=== PATIENT | male | born 1965 | race Hispanic/Latino ===

== ENCOUNTER 2017-01-07 17:11 | Emergency (ER) | payer OTHER, SELFPAY ==
[2017-01-07 17:50] LABS: #Lymphocytes 1.3 thou/uL (1.20-3.40); #Monocytes 0.8 thou/uL (0.11-0.59); #Neutrophils 3.7 thou/uL (1.40-6.50); %Basophils 0.6 % (0.0-1.0); %Eosinophils 0.6 % (0.0-10.0); %Lymphocytes 22.1 % (21.0-51.0); %Monocytes 13.7 % (0.0-10.0); Hematocrit 45.6 % (42.0-52.0); Mean Platelet Volume 9.4 fL (7.4-10.4); Red Blood Cell (RBC) Count 4.75 mill/uL (4.70-6.10); White Blood Cell (WBC) Count 5.9 thou/uL (4.8-10.8)
[2017-01-07 18:06] LABS: Lactic Acid - Sepsis 1.8 mmol/L (0.5-2.2)
[2017-01-07 18:09] LABS: ALT (SGPT) 34 U/L (8-55); AST (SGOT) 65 U/L (5-34); Alkaline Phosphatase 81 U/L (40-150); Anion Gap 14 mmol/L (10-20); BUN (Urea Nitrogen) 8 mg/dL (8.4-25.7); Bilirubin, Total 0.9 mg/dL (0.2-1.2); Calc. Creatinine Clearance 0 mL/min (70-130); Calcium 9.8 mg/dL (7.8-10.44); Carbon Dioxide 31 mmol/L (22-29); Chloride 95 mmol/L (98-107); Estimated GFR-MDRD Greater than 90; Globulin 5.1 g/dL (2.4-3.5); Protein, Total 9.2 g/dL (6.0-8.3)
[2017-01-07] MEDS ORDERED: Ketorolac Tromethamine 30 MG/ML VIAL ONE (18:21)
[2017-01-07] MEDS ORDERED: Ondansetron HCl/PF 4 MG/2 ML Vial ONE (18:21)
[2017-01-07] MEDS ORDERED: cloNIDine 0.1 MG TAB ONE (18:27)
--- NOTE | 2017-01-07 20:37 | RAD ---
CHEST TWO VIEW 01/07/17 HISTORY: Fever, cough and chills. COMPARISON: Chest two view 01/08/16. FINDINGS: The lungs are clear. No pneumothorax or effusion. The cardiac silhouette and mediastinal contours ar e similar. IMPRESSION: No acute intrathoracic abnormality. No significant change. POS: [facility]
== END 2017-01-08 00:40 | disposition home or self-care (01) ==
LOC: ERS 17:11
DX: J11.1 Influenza due to unidentified influenza virus with other respiratory manifestations (principal); I10 Essential (primary) hypertension; Z86.73 Personal history of transient ischemic attack (TIA), and cerebral infarction without residual deficits; G89.29 Other chronic pain; K74.60 Unspecified cirrhosis of liver; F41.9 Anxiety disorder, unspecified; F32.9 Major depressive disorder, single episode, unspecified; F17.210 Nicotine dependence, cigarettes, uncomplicated; Z79.899 Other long term (current) drug therapy
CPT/HCPCS: 36415; 71020; 80053; 82140; 83605; 85025; 93005; 96361; 96374; 96375; 99406; J1885; J2405

== ENCOUNTER 2017-08-17 00:28 | Inpatient (IN) | payer SELFPAY ==
[2017-08-17] MEDS ORDERED: Ondansetron ODT 8 MG TAB ONE (00:49)
[2017-08-17] MEDS ORDERED: Lorazepam 2 MG/ML VIAL ONE (00:53)
[2017-08-17 00:59] LABS: Hemoglobin 11.8 g/dL (14.0-18.0); Mean Corpuscular Hemoglobin 32.4 pg (27.0-31.0); Mean Corpuscular Volume 95.4 fL (78.0-98.0); RBC Distribution Width 13.1 % (11.5-14.5); Red Blood Cell (RBC) Count 3.65 mill/uL (4.70-6.10); White Blood Cell (WBC) Count 6.7 thou/uL (4.8-10.8)
[2017-08-17] MEDS ORDERED: Octreotide Acetate 50 MCG/ML AMP ONE (01:09)
[2017-08-17] MEDS ORDERED: Pantoprazole 40 MG VIAL ONE (01:09)
[2017-08-17 01:13] LABS: INR-International Normal Ratio 1.1; PTT 31.3 SEC (22.9-36.1); Prothrombin Time 13.9 SEC (12.0-14.7)
[2017-08-17 01:14] LABS: ALT (SGPT) 62 U/L (8-55); AST (SGOT) 166 U/L (5-34); Albumin 3.6 g/dL (3.5-5.0); Alkaline Phosphatase 133 U/L (40-150); Anion Gap 17 mmol/L (10-20); BUN (Urea Nitrogen) 14 mg/dL (8.4-25.7); Bilirubin, Total 1.2 mg/dL (0.2-1.2); Calc. Creatinine Clearance 0 mL/min (70-130); Calcium 9.2 mg/dL (7.8-10.44); Carbon Dioxide 29 mmol/L (22-29); Chloride 92 mmol/L (98-107); Estimated GFR-MDRD Greater than 90; Globulin 4.3 g/dL (2.4-3.5); Glucose 149 mg/dL (70-105); Lipase 87 U/L (8-78); Magnesium 1.7 mg/dL (1.6-2.6); Potassium 3.1 mmol/L (3.5-5.1); Protein, Total 7.9 g/dL (6.0-8.3); Sodium 135 mmol/L (136-145)
[2017-08-17] MEDS ORDERED: Octreotide Acetate 100 MCG/ML VIAL SLOW IVP SCH (01:15)
[2017-08-17] MEDS ORDERED: Octreotide Acetate 1,250 MCG in Sodium Chloride 0.9% 250 ML 250 ML IVPB SCH (01:15)
[2017-08-17 01:16] LABS: #Basophils 0.1 thou/uL (0.0-0.2); #Eosinphils 0.1 thou/uL (0.0-0.7); #Lymphocytes 1.6 thou/uL (1.20-3.40); #Monocytes 0.7 thou/uL (0.11-0.59); #Neutrophils 4.1 thou/uL (1.40-6.50); %Basophils 1.4 % (0.0-1.0); %Eosinophils 1.8 % (0.0-10.0); %Lymphocytes 24.3 % (21.0-51.0); %Monocytes 10.6 % (0.0-10.0); %Neutrophils 61.9 % (42.0-75.0); MDiff Complete? YES; Mean Platelet Volume 9.6 fL (7.4-10.4); PLT Morphology Comment Appears Decreased; Platelet Count 99 thou/uL (130-400); Target Cells SLIGHT = 2-5 cells (100X) (0-1/hpf)
[2017-08-17 01:18] LABS: CKMB 0.6 ng/mL (0-6.6); Troponin I Less than 0.010 ng/mL (< 0.028)
[2017-08-17] MEDS ORDERED: Sodium Chloride 0.9% 100 ML ONE (01:28)
[2017-08-17] MEDS ORDERED: cefTRIAXone\\ROCEPHIN 1 GM VIAL ONE (01:28)
[2017-08-17] MEDS ORDERED: Ondansetron HCl/PF 4 MG/2 ML Vial IVP PRN ×2 (03:26→09:41)
[2017-08-17] MEDS ORDERED: Ondansetron ODT 4 MG TAB SL PRN (03:26)
[2017-08-17] MEDS ORDERED: Acetaminophen 325 MG TAB PO PRN (03:26)
[2017-08-17] MEDS ORDERED: Pantoprazole 80 MG, Admixture Fee 1 EACH in Sodium Chloride 0.9% 100 ML IVP SCH (03:30)
[2017-08-17 03:33] VITALS: BMI 28.5
[2017-08-17] MEDS ORDERED: Diazepam 5 MG TAB PO PRN (03:57)
[2017-08-17] MEDS ORDERED: Thiamine HCl 200 MG/2 ML VIAL IM SCH (04:00)
[2017-08-17] MEDS: traMADol HCl 50 MG TAB PO PRN ×2 (04:17→15:02)
[2017-08-17 04:34] LABS: Anion Gap 13 mmol/L (10-20); BUN (Urea Nitrogen) 13 mg/dL (8.4-25.7); Calc. Creatinine Clearance 159 mL/min (70-130); Calcium 8.2 mg/dL (7.8-10.44); Carbon Dioxide 31 mmol/L (22-29); Chloride 96 mmol/L (98-107); Estimated GFR-MDRD Greater than 90; Glucose 142 mg/dL (70-105); Potassium 3.2 mmol/L (3.5-5.1); Sodium 137 mmol/L (136-145)
[2017-08-17] MEDS: Sodium Chloride 0.45% 1,000 ML IV SCH ×2 (05:47→12:12)
--- NOTE | 2017-08-17 06:25 | HP ---
TIME OF EVALUATION: 02:50 a.m. CODE STATUS: FULL CODE. PRIMARY CARE PHYSICIAN: The patient has no PCP. CHIEF COMPLAINT: Vomiting up blood. HISTORY OF PRESENT ILLNESS: This is a 52-year-old male patient with a past medical history of chronic alcohol abuse, liver cirrhosis, presented to the hospital, complaining of nausea, vomiting, hematemesis started about 4:00 p.m. The patient also reported having to generalized weakness, tremors; for that reason, he had to drink 3 beers today to decrease the tremors,but it has gotten worse again, pt reported associated anxiety, palpitations. Symptoms started suddenly, associated with abdominal pain, 09/19. REVIEW OF SYSTEMS: Constitutional: No fever, no chills. Generalized weakness. Respiratory: No cough, no sputum production, or shortness of breath. Cardiovascular: No chest pain, palpitations, shortness of breath. Gastrointestinal: The patient has nausea, hematemesis, abdominal pain. Central Nervous System: No dizziness, headache, or feeling lightheaded. Genitourinary: No burning on urination. Extremities: No leg swelling. psych: temors, anxiety. All other systems were reviewed and were negative except for the findings mentioned above. PAST MEDICAL HISTORY: Cirrhosis of the liver, history of previous gastrointestinal bleeding, history of previous stroke, history of pancreatitis, polysubstance abuse. PAST SURGICAL HISTORY: EGD in 2008. PSYCHIATRIC HISTORY: Anxiety. FAMILY HISTORY: Mother, diabetes, and hypertension. SOCIAL HISTORY: Patient drinks more than 10 drinks per day. Former drug user of cocaine, heroin, marijuana, opioids, still everyday smoker, smokes 2 packs per day. DRUG ALLERGIES: No known drug allergies reported. MEDICATIONS: No reported medications. PHYSICAL EXAMINATION: VITAL SIGNS: Blood pressure on presentation was 92/69 with heart rate 92, respiratory rate was 18, temperature 98.1, oxygen saturation 94, blood pressure improved after fluid resuscitation with the systolic 128/87, heart rate 80. GENERAL: The patient is alert, lethargic, not in acute distress. HEENT: Eye, normal conjunctivae. Moist oral mucosa. Anicteric. NECK: No JVD. RESPIRATORY: Bilateral air entry. No rales, no wheezing. Symmetric expansion. CARDIOVASCULAR: Normal rate, regular rhythm, no murmur, no gallop, no edema. ABDOMEN: Soft, mild tenderness, bowel sounds are present. MUSCULOSKELETAL: Baseline range of motion and strength. No tenderness. SKIN: Warm and intact. No pallor, no rash, no redness. NEUROLOGIC: Baseline sensorium. No evidence of any new focal weakness. Baseline speech. Cranial nerves seemed to be intact. PSYCHIATRIC: The patient is anxious, having tremors, no hallucinations at this point. LABORATORY AND DIAGNOSTIC DATA: Reviewed. The patient has white count of 6.7, hemoglobin 11.8, platelet count 99. Chemistry: Sodium 137, potassium 3.2, chloride 96, carbon dioxide 31, anion gap 13, creatinine 0.6, GFR greater than 90, glucose 142, calcium 9.2, AST 166, ALT 62. Troponin was negative. Plasma alcohol 76. EKG was discussed with the ER physician and performing physician, heart rate 89. ST segments and T waves are normal, prolonged QT, no evidence of any acute ischemic event. ASSESSMENT AND PLAN: The patient was placed in the hospital for a medical condition. 1. Upper gastrointestinal bleeding, patient has a history of GI bleed in the past, history of cirrhosis, we will consult gastroenterology, we will place in IMCU since patient was hypotensive on presentation, has recovered with IV fluids , type and screen has been ordered, PRBCs has been placed on hold in case the patient is actively bleeding and develop need for transfusion. We will monitor H and H, we will give hydration to keep hemodynamics, octreotide, Protonix drip. 2. Impending delirium tremens, patient has tremors, anxiety, occasionally lethargic. No hallucination at this point. We will place the patient one ase protocol. We will adjust the treatment depending on patient's response to treatment. 3. Acute hypokalemia, potassium 3.2, will replace electrolytes as needed. 3. Hyperglycemia 142, likely due to acute physical distress, this is mild, will monitor for any acute intervention. Elevated LFTs with AST 166 and ALT 62, monitor, likely secondary to alcoholic hepatitis. 4. Alcohol intoxication. Plasma alcohol level 76. We will watch for DT's Advised to stop using alcohol. The patient has stated that he has tried help with many different organizations and has failed before. I have encouraged the patient to keep trying until he completely stopped drinking. 5. Deep venous thrombosis prophylaxis. MTDD
[2017-08-17 07:09] LABS: Hemoglobin 10.5 g/dL (14.0-18.0)
[2017-08-17] MEDS ORDERED: Promethazine HCl 25 MG/ML VIAL SLOW IVP PRN (09:41)
[2017-08-17] MEDS ORDERED: Promethazine HCl 25 MG/ML VIAL IM PRN (09:41)
[2017-08-17] MEDS ORDERED: Pantoprazole 40 MG VIAL IVP SCH (09:45)
--- NOTE | 2017-08-17 11:00 | CON ---
DATE OF CONSULTATION: 08/17/2017 CHIEF COMPLAINT: Vomited blood. HISTORY OF PRESENT ILLNESS: Mr. Caldwell is a 52-year-old man, who yesterday afternoon had sudden on set of red and black hematemesis. He then had several more episodes of red hematemesis with clots. He states he has been vomiting frequently over the last couple of weeks, it would just nonbloody emes is. He has had some aching upper periumbilical to epigastric abdominal pain. This has been somewhat persistent over the last couple of weeks. He takes ibuprofen for back pain, maybe once per week, a couple at a time. He reports he had a lower GI bleed a couple of months ago, for which he underwent colonoscopy. He states that was at this hospital; however, did not find any record of that at least under this medical record number. He has a history of cirrhosis diagnosed 3 years ago. He has had n o prior vomiting of blood. PAST MEDICAL HISTORY: Alcoholic cirrhosis and polysubstance abuse, history of hypertension and chron ic back pain, history of pancreatitis and stroke. PAST SURGICAL HISTORY: Colonoscopy a couple months ago per his report. FAMILY HISTORY: Negative for GI malignancy or liver disease. SOCIAL HISTORY: Drinks 10 beers a day or more. He smokes 2 packs per day. He has multiple other dr ugs in the past including cocaine and heroin, marijuana and methamphetamines. ALLERGIES: No known drug allergies. MEDICATIONS AT HOME: He states he takes three different blood pressure medications, but does not rec all the name now. There is a medicine list that shows amitriptyline, hydrochlorothiazide, loratadine , metoprolol, ranitidine, clonidine, and trazodone. REVIEW OF SYSTEMS: Negative x10 systems reviewed except as stated in history of present illness. PHYSICAL EXAMINATION: VITAL SIGNS: Temperature 98.9, pulse 85, and blood pressure 118/78. GENERAL: He is in no acute distress, alert and oriented x3. HEENT: Eyes have no scleral icterus. Oropharynx is clear, without lesions. NECK: No cervical or supraclavicular lymphadenopathy. LUNGS: Clear to auscultation bilaterally. HEART: Regular rate and rhythm without murmur. ABDOMEN: He does have tenderness in the periumbilical abdominal area. There is voluntary slight gua rding. EXTREMITIES: No lower extremity edema. NEUROLOGIC: Reveals no asterixis. LABORATORY DATA: White blood cell count 6.7, hemoglobin 10.5, platelets 99. INR 1.1, creatinine 0.6 2, AST 166, ALT 62, bilirubin 1.2, alkaline phosphatase 133. IMPRESSION: 1. Hematemesis. This could be due to esophageal varices or peptic ulcer or Wilma-Wilkerson tear. 2. Alcoholic hepatitis with mild elevation of the AST 2 times greater than ALT. 3. Anemia of acute blood loss. 4. Alcoholic cirrhosis. 5. Alcohol, tobacco, and polysubstance abuse. RECOMMENDATIONS: 1. Octreotide drip. 2. Proton pump inhibitor drip. 3. EGD today. 4. DT precautions and vitamins and thiamine, and folate. 5. Alcohol cessation is advised. 6. Check alpha fetoprotein and ultrasound of the liver for hepatoma screening. 7. Check hepatitis A total antibody and hepatitis B surface antibody. He should be vaccinated if he is not immune. Hepatitis C antibody was previously negative and hepatitis B acute panel was negativ e; however, these labs are from 2012. I will recheck these as well.
--- NOTE | 2017-08-17 11:36 | OP ---
DATE OF PROCEDURE: 08/17/2017 PROCEDURE: Esophagogastroduodenoscopy with control of hemorrhage. PREOPERATIVE DIAGNOSIS: Upper gastrointestinal bleed. OPERATIVE NOTE: Informed consent was obtained from the patient, but he was sedated with total intrav enous anesthesia. The bite block was placed and the endoscope was advanced easily to the second port ion of the duodenum and retroflexion was performed in the stomach. The esophagus had shallow mild er osions in the distal esophagus. There was a 1 cm tear just below the Z-line in the GE junction. In the distal portion of this tear was a visible vessel, which was cauterized with a 10-[place] gold prob e. There was moderate portal hypertensive gastropathy in the fundus of the stomach. No esophageal o r gastric varices were seen. There was a 3 mm AVM in the antrum of the stomach, which was cauterized with a 10-[place]riot gold probe as well; however, this does not appear to have been the bleeding source. The pylorus and first and second portions of the duodenum were normal. IMPRESSION: 1. Wilma-Wilkerson tear with visible vessel, which was cauterized with a 10-[place] gold probe. This w as the bleeding source. 2. Grade B erosive esophagitis. 3. Tiny vascular ectasia in the antrum was also cauterized with the 10-[place] gold probe; however, t his was not the primary bleeding source. 4. Moderate portal hypertensive gastropathy in the fundus of the stomach. 5. No esophageal or gastric varices were visualized. RECOMMENDATIONS: 1. Discontinue octreotide. 2. Proton pump inhibitor twice daily orally. 3. Check alpha fetoprotein and ultrasound of the liver for hepatoma screening. 4. Alcohol and smoking cessation.
[2017-08-17] MEDS: Multivitamin W/ Minerals 1 TAB PO SCH (12:10)
[2017-08-17] MEDS: Folic Acid 1 MG TAB PO SCH (12:11)
[2017-08-17] MEDS: traZODone HCl 50 MG TAB PO SCH ×2 (12:11→20:53)
--- NOTE | 2017-08-17 14:28 | PDOC.PN ---
- Subjective Encounter Start Date: 08/17/17 Encounter Start Time: 13:30 Subjective: pt up in bed has some abdomen pain - Objective Resuscitation Status: Resuscitation Status FULL:Full Resuscitation Vital Signs & Weight: Vital Signs (12 hours) Temp Pulse Resp BP BP Pulse Ox 08/17/17 12:47 98.7 F 78 18 134/95 H 92 L 08/17/17 12:20 88 16 134/95 H 94 L 08/17/17 12:00 134/95 H 08/17/17 08:00 98.9 F 85 19 118/78 98 08/17/17 07:31 98.9 F 85 19 118/78 99 08/17/17 03:16 98.6 F 85 18 126/86 126/86 99 Weight Weight 182 lb 6.4 oz I&O: 08/16/17 08/17/17 08/18/17 06:59 06:59 06:59 Intake Total 206 Output Total 250 Balance -44 Result Diagrams: 08/17/17 03:46 08/17/17 03:46 Phys Exam - Physical Examination HEENT: PERRLA, moist MMs, sclera anicteric, TM's clear, oral pharynx no lesions , 2+ tonsils Neck: no nodes, no JVD, supple, full ROM Respiratory: no wheezing, no rales, no rhonchi, wheezing present, clear to auscultation bilateral Cardiovascular: RRR, no significant murmur, no rub, gallop, irregular Gastrointestinal: soft, positive bowel sounds mild tenderenss to epigastric area Musculoskeletal: no edema, pulses present, edema present Dx/Plan (1) Upper GI bleed Code(s): K92.2 - GASTROINTESTINAL HEMORRHAGE, UNSPECIFIED Status: Acute (2) Alcohol withdrawal Code(s): F10.239 - ALCOHOL DEPENDENCE WITH WITHDRAWAL, UNSPECIFIED Status: Acute (3) HTN (hypertension) Code(s): I10 - ESSENTIAL (PRIMARY) HYPERTENSION Status: Chronic Qualifiers: (4) Thrombocytopenia Code(s): D69.6 - THROMBOCYTOPENIA, UNSPECIFIED Status: Chronic (5) Hypokalemia Code(s): E87.6 - HYPOKALEMIA Status: Acute - Plan pt had his egd no varices but has shona bright tear/ectasia/esophagitis -: recommend against drinking. on wa protocol -: will replace K -: continue ppi * . Review of Systems - Review of Systems ENT: negative: Ear Pain, Ear Discharge, Nose Pain, Nose Discharge, Nose Congestion, Mouth Pain, Mouth Swelling, Throat Pain, Throat Swelling, Other Respiratory: negative: Cough, Dry, Shortness of Breath, Hemoptysis, SOB with Excertion, Pleuritic Pain, Sputum, Wheezing Cardiovascular: negative: chest pain, palpitations, orthopnea, paroxysmal nocturnal dyspnea, edema, light headedness, other Gastrointestinal: Abdominal Pain - Medications/Allergies Allergies/Adverse Reactions: Allergies Allergy/AdvReac Type Severity Reaction Status Date / Time No Known Allergies Allergy Verified 08/17/17 05:33 Medications: Current Medications Acetaminophen (Tylenol) 650 mg PO Q4H PRN PRN Reason: Headache/Fever or Pain Stop: 08/17/17 15:00 Amitriptyline HCl (Elavil) 150 mg PO [facility] Diazepam (Valium) 10 mg PO Q4H PRN PRN Reason: FOR ASE 10 OR GREATER Stop: 08/18/17 04:00 Last Admin: 08/17/17 04:17 Dose: 10 mg Diazepam (Valium) 5 mg PO Q4H PRN PRN Reason: FOR ASE 10 OR GREATER Folic Acid (Folvite) 1 mg PO DAILY [facility] Last Admin: 08/17/17 12:11 Dose: 1 mg Sodium Chloride (1/2 Normal Saline) 1,000 mls @ 125 mls/hr IV .Q8H [facility] Stop: 08/17/17 15:00 Last Admin: 08/17/17 12:12 Dose: Not Given Pantoprazole Sodium 80 mg/Miscellaneous Medication 1 each/ Sodium Chloride 100 mls @ 10 mls/hr IVP INF [facility] Stop: 08/17/17 14:30 Last Admin: 08/17/17 04:18 Dose: 100 mls Iron/Minerals/Multivitamins (Theragran M) 1 tab PO DAILY [facility] Last Admin: 08/17/17 12:10 Dose: 1 tab Magnesium Oxide (Magnesium Oxide) 400 mg PO DAILY [facility] Ondansetron HCl (Zofran) 4 mg IVP Q6H PRN PRN Reason: Nausea/Vomiting Stop: 08/17/17 15:00 Last Admin: 08/17/17 04:18 Dose: 4 mg Ondansetron HCl (Zofran Odt) 4 mg SL Q6H PRN PRN Reason: Nausea/Vomiting Stop: 08/17/17 15:00 Pantoprazole Sodium (Protonix) 40 mg PO BID [facility] Sodium Chloride (Flush - Normal Saline) 10 ml IVF PRN PRN PRN Reason: Saline Flush Stop: 08/17/17 15:00 Thiamine HCl (Thiamine) 100 mg PO DAILY [facility] Tramadol HCl (Ultram) 50 mg PO TIDPRN PRN PRN Reason: Moderate Pain (4-6) Last Admin: 08/17/17 04:17 Dose: 50 mg Trazodone HCl (Desyrel) 50 mg PO BID [facility] Last Admin: 08/17/17 12:11 Dose: 50 mg
[2017-08-17] MEDS ORDERED: PROPOFOL 200 MG/20 ML VIAL ONE (14:56)
[2017-08-17] MEDS: Ondansetron HCl/PF 4 MG/2 ML Vial SLOW IVP PRN (20:54)
[2017-08-18] MEDS ORDERED: Diazepam 5 MG TAB PO PRN (04:00)
[2017-08-18 04:11] LABS: #Basophils 0.1 thou/uL (0.0-0.2); #Eosinphils 0.2 thou/uL (0.0-0.7); #Lymphocytes 1.7 thou/uL (1.20-3.40); #Monocytes 0.7 thou/uL (0.11-0.59); #Neutrophils 3.9 thou/uL (1.40-6.50); %Basophils 0.8 % (0.0-1.0); %Eosinophils 3.4 % (0.0-10.0); %Lymphocytes 25.8 % (21.0-51.0); Hemoglobin 9.5 g/dL (14.0-18.0); Mean Corpuscular HGB CONC 34.5 g/dL (32.0-36.0); Mean Corpuscular Hemoglobin 32.9 pg (27.0-31.0); Mean Corpuscular Volume 95.4 fL (78.0-98.0); Platelet Count 90 thou/uL (130-400); RBC Distribution Width 12.8 % (11.5-14.5); Red Blood Cell (RBC) Count 2.88 mill/uL (4.70-6.10); White Blood Cell (WBC) Count 6.6 thou/uL (4.8-10.8)
[2017-08-18 04:16] LABS: ALT (SGPT) 36 U/L (8-55); AST (SGOT) 79 U/L (5-34); Albumin 3.1 g/dL (3.5-5.0); Alkaline Phosphatase 100 U/L (40-150); Anion Gap 10 mmol/L (10-20); BUN (Urea Nitrogen) 9 mg/dL (8.4-25.7); Bilirubin, Total 1.4 mg/dL (0.2-1.2); Calc. Creatinine Clearance 165 mL/min (70-130); Calcium 8.1 mg/dL (7.8-10.44); Carbon Dioxide 32 mmol/L (22-29); Chloride 95 mmol/L (98-107); Estimated GFR-MDRD Greater than 90; Globulin 3.4 g/dL (2.4-3.5); Glucose 124 mg/dL (70-105); Protein, Total 6.5 g/dL (6.0-8.3); Sodium 134 mmol/L (136-145)
[2017-08-18 04:38] LABS: HBCM Index 0.06 S/CO (0-0.79); HBSAg Index 0.15 S/CO (0-0.99); Hep A IgM AB Non-Reactive (NonReactive); Hep B Surf Ag Non-Reactive S/CO (NonReactive); Hep C IgG Ab Non-Reactive (NonReactive); Hep C Index 0.12 S/CO (0-0.79); Hepatitis B Core IGM Abs Non-Reactive (NonReactive)
[2017-08-18 04:47] LABS: Potassium 2.9 mmol/L (3.5-5.1)
[2017-08-18] MEDS ORDERED: Potassium Chloride 20 MEQ TAB PO SCH ×2 (05:00→09:30)
[2017-08-18 05:49] LABS: HBSAB Concentration 10.28 mIU/mL; Hep B Surf AB Indeterminate (NonReactive)
[2017-08-18] MEDS: Folic Acid 1 MG TAB PO SCH (09:29)
[2017-08-18] MEDS: Multivitamin W/ Minerals 1 TAB PO SCH (09:29)
[2017-08-18] MEDS: traZODone HCl 50 MG TAB PO SCH ×2 (09:29→20:14)
[2017-08-18] MEDS: Magnesium Oxide 400 MG TAB PO SCH (09:29)
--- NOTE | 2017-08-18 11:10 | ULT ---
GALLBLADDER ULTRASOUND: CLINICAL HISTORY: Cirrhosis. Evaluate for hepatoma. FINDINGS: There is increased echogenicity of the hepatic parenchyma. No discrete hepatic mass is visualized. There is no acute gallbladder pathology. Johnson sign is reported as negative. There is prominence o f the common duct, at 9 mm. No ascites of significance. IMPRESSION: 1. Prominent sized, echogenic liver, which may be on the basis of hepatic steatosis. There is no di screte hepatic lesion identified. 2. Prominent biliary ducts. Recommend correlation with biliary laboratory values to exclude an obst ructive process. 3. If there remains clinical concern for hepatoma, consider followup with dedicated CT or MRI abdome n, utilizing hepatic mass protocol. POS: [facility]
--- NOTE | 2017-08-18 15:16 | PRG ---
DATE OF SERVICE: 08/18/2017 SUBJECTIVE: Mr. Caldwell had one black stool this morning. He tolerated his diet well; however, thi s afternoon, he did have some pain in his epigastric region. This had no further nausea or vomiting. OBJECTIVE: VITAL SIGNS: Temperature 98.2, pulse 81, blood pressure 119/89. GENERAL: He is in no acute distress, awake and alert. LUNGS: Clear to auscultation bilaterally. HEART: Regular rate and rhythm. ABDOMEN: Soft. He has tenderness in the epigastric region without guarding. Bowel sounds are prese nt. LABORATORY DATA: Hemoglobin is 9.5, creatinine 0.6, bilirubin 1.4, AST 79, ALT 36, alkaline phosphat ase 100, albumin 3.1. IMPRESSION: 1. Upper gastrointestinal bleed from a Wilma-Wilkerson tear, status post electrocautery. He passed so me old blood out today, but appears to have good control of bleeding source endoscopically. 2. Alcoholic hepatitis. 3. Alcoholic cirrhosis. 4. Anemia of acute blood loss. 5. Alcohol abuse. RECOMMENDATIONS: 1. Continue oral diet and proton pump inhibitor. 2. The ultrasound of liver was negative for evidence of hepatoma. Alpha fetoprotein is pending. 3. If his hemoglobin remains stable and his symptoms improve, then I would anticipate he should be a ble to discharge home tomorrow.
[2017-08-18] MEDS: traMADol HCl 50 MG TAB PO PRN ×2 (17:52→22:29)
[2017-08-18] MEDS: Ondansetron HCl/PF 4 MG/2 ML Vial SLOW IVP PRN (17:53)
[2017-08-19 05:32] LABS: #Basophils 0.1 thou/uL (0.0-0.2); #Eosinphils 0.2 thou/uL (0.0-0.7); #Lymphocytes 1.8 thou/uL (1.20-3.40); #Monocytes 0.7 thou/uL (0.11-0.59); #Neutrophils 3.3 thou/uL (1.40-6.50); %Basophils 1.1 % (0.0-1.0); %Eosinophils 3.8 % (0.0-10.0); %Lymphocytes 30.1 % (21.0-51.0); %Monocytes 10.7 % (0.0-10.0); %Neutrophils 54.2 % (42.0-75.0); Hemoglobin 9.3 g/dL (14.0-18.0); Mean Corpuscular HGB CONC 34.1 g/dL (32.0-36.0); Mean Corpuscular Hemoglobin 33.1 pg (27.0-31.0); Mean Corpuscular Volume 97.1 fL (78.0-98.0); Mean Platelet Volume 10.2 fL (7.4-10.4); Platelet Count 91 thou/uL (130-400); RBC Distribution Width 12.9 % (11.5-14.5); Red Blood Cell (RBC) Count 2.81 mill/uL (4.70-6.10)
[2017-08-19 05:42] LABS: Anion Gap 10 mmol/L (10-20); BUN (Urea Nitrogen) 6 mg/dL (8.4-25.7); Calc. Creatinine Clearance 162 mL/min (70-130); Calcium 8.5 mg/dL (7.8-10.44); Carbon Dioxide 29 mmol/L (22-29); Chloride 98 mmol/L (98-107); Estimated GFR-MDRD Greater than 90; Glucose 92 mg/dL (70-105); Potassium 3.6 mmol/L (3.5-5.1); Sodium 133 mmol/L (136-145)
--- NOTE | 2017-08-19 07:42 | PDOC.EVN ---
Event Note - Event Note Event Note: late entry for 08/18/2017 pt seen & examined h&p reviewed no new c/o, seen post EGD, no continued nausea abd pain no diarrhea friend visiting @ bedside exam gen: AAA, NAD, seated in hospital bed resp: ctab, no w/r/r, reasonable air movement, no conversational dyspnea cv: s1, s2, no m/r/g/, pulses 2+ b/l UE, no pitting pedal edema abd: + Bs, soft, non ttp ext: maee labs: seen & Examined CBC grossly stable VSS A/P shona bright type tear on EGD apprec GI c/s serial H.H Etoh USE with concern for hepatotoxicity from EtOH use counseled re: cessation of alcohol use - pt is contemplative diet: as per GI, adv as akil dvt ppx activity as akil
[2017-08-19] MEDS: traZODone HCl 50 MG TAB PO SCH (09:43)
[2017-08-19] MEDS: Folic Acid 1 MG TAB PO SCH (09:43)
[2017-08-19] MEDS: Multivitamin W/ Minerals 1 TAB PO SCH (09:43)
[2017-08-19] MEDS: Magnesium Oxide 400 MG TAB PO SCH (09:43)
[2017-08-19 15:31] VITALS: BP 121/86; TEMP 98.2
--- NOTE | 2017-08-19 15:32 | PDOC.EVN ---
Event Note - Event Note Event Note: SPOKE WITH PT'S SON ABOUT HIS LOW BP AND RECOMMENDED TO HOLD HIS BP MEDS UNTIL FRIDAY. ALSO ASKED TO CHECK BP PRIOR TO GIVING HIS BLOOD PRESSURE MEDS
--- NOTE | 2017-08-20 01:56 | DIS ---
DATE OF ADMISSION: 08/17/2017 DATE OF DISCHARGE: 08/19/2017 DISCHARGE DIAGNOSES: 1. Upper gastrointestinal bleed, most likely from Wilma-Wilkerson tear. 2. Alcoholic cirrhosis. 3. Alcoholic hepatitis. 4. Acute blood loss anemia. 5. Alcohol abuse. HOSPITAL COURSE: Patient is a 52-year-old male who has a history of alcohol use who initially presen jacinda to the hospital with nausea, vomiting, and hematemesis. Patient initially was put on octreotide and a PPI drip. The patient was seen by GI, underwent an endoscopy on 07/18/2017 which indicated a M allory-Wilkerson tear with a visible vessel, which was cauterized by 10-[place] gold probe. He also had g rade B erosive esophagitis. He also had a tiny vascular ectasia in the antrum that was also cauteriz ed. He did have some moderate portal hypertensive gastropathy in the fundus of the stomach. No esop hageal or gastric varices were visualized. The patient was monitored over 24 hours, his H&H continue d to remain stable. He was able to tolerate a full diet. He was put on PPI twice a day. Also, he h ad an abdominal ultrasound which indicated there was a prominent size echogenic liver, most likely on the basis of hepatic steatosis, no hepatic lesions were noted. Prominent biliary ducts. The patien t tolerated his diet well. He wants to go home. We will discharge the patient. Follow up with GI i n about a month. The patient was asked to refrain from alcohol use. He was put on PPI twice a day. Great stress was put on stopping the alcohol use. Patient was recommended that if his abdominal zulema n, nausea, vomiting started, he needs to come back to the ER for further evaluation. PHYSICAL EXAMINATION: VITAL SIGNS: 98.6, 78, 104/82, 70, 98% room air. GENERAL: He is awake, alert, and oriented x3, does not appear in distress. CARDIOVASCULAR: S1, S2 present. No murmurs, rubs or gallops. ABDOMEN: Soft, nontender. Bowel sounds are present x2. EXTREMITIES: No edema. DISCHARGE MEDICATIONS: He will take Protonix 40 mg b.i.d., magnesium oxide 40 mg daily, multivitamin 1 daily, folic acid 1 daily, thiamine 100 mg daily, Lopressor 50 mg b.i.d., clonidine 0.2 mg p.o. b. i.d., trazodone 50 mg at bedtime, amitriptyline 50 mg at bedtime, hydrochlorothiazide 25 mg daily, an d loratadine 100 mg daily.
== END 2017-08-19 16:24 | disposition home or self-care (01) | DRG 369 ==
LOC: ERS 00:28 → IMCU/EMU 02:40
PROVIDERS: ADMIT Hospitalist; ATTEND Hospitalist
PROC: 0W3P8ZZ Control Bleeding in Gastrointestinal Tract, Via Natural or Artificial Opening Endoscopic (ICD-10-PCS; principal; 2017-08-17)
DX: K22.6 Gastro-esophageal laceration-hemorrhage syndrome (principal); F10.231 Alcohol dependence with withdrawal delirium; K76.6 Portal hypertension; D62 Acute posthemorrhagic anemia; I25.2 Old myocardial infarction; F41.9 Anxiety disorder, unspecified; F14.11 Cocaine abuse, in remission; F11.11 Opioid abuse, in remission; F12.11 Cannabis abuse, in remission; F17.210 Nicotine dependence, cigarettes, uncomplicated; E87.6 Hypokalemia; R73.9 Hyperglycemia, unspecified; K31.819 Angiodysplasia of stomach and duodenum without bleeding; K31.89 Other diseases of stomach and duodenum; I95.9 Hypotension, unspecified; K20.8 Other esophagitis; K70.10 Alcoholic hepatitis without ascites; K70.30 Alcoholic cirrhosis of liver without ascites; I10 Essential (primary) hypertension; D69.6 Thrombocytopenia, unspecified
CPT/HCPCS: 36415; 76705; 80048; 80053; 80074; 80307; 82105; 82553; 83690; 83735; 84443; 84484; 85025; 85610; 85730; 86706; 86708; 86850; 86900; 86901; 93005; 96361; 96365; 96375; A4216; C9113; J0696; J2060; J2354; J2405; J2704; J3411; J3475; J7050

== ENCOUNTER 2019-08-13 10:46 | Emergency (ER) | payer OTHER ==
[2019-08-14 13:13] LABS: SARS-CoV-2 MS2 Positive; SARS-CoV-2 N Gene Negative; SARS-CoV-2 S Gene Negative; SARS-CoV-2 orf1ab Negative
== END 2019-08-13 12:00 | disposition home or self-care (01) ==
LOC: ERS 10:46
DX: R11.0 Nausea (principal); Z20.828 Contact with and (suspected) exposure to other viral communicable diseases; I10 Essential (primary) hypertension; F41.9 Anxiety disorder, unspecified; F17.210 Nicotine dependence, cigarettes, uncomplicated
CPT/HCPCS: 87635; 99283; U0003

== ENCOUNTER 2019-09-06 10:51 | Emergency (ER) | payer OTHER ==
[2019-09-07 13:54] LABS: SARS-CoV-2 MS2 Positive; SARS-CoV-2 N Gene Negative; SARS-CoV-2 S Gene Negative; SARS-CoV-2 by NAA Not Detected (NotDetected); SARS-CoV-2 orf1ab Negative
== END 2019-09-06 11:29 | disposition home or self-care (01) ==
LOC: ERS 10:51
DX: Z20.828 Contact with and (suspected) exposure to other viral communicable diseases (principal); I10 Essential (primary) hypertension; F41.9 Anxiety disorder, unspecified; F17.210 Nicotine dependence, cigarettes, uncomplicated; Z86.73 Personal history of transient ischemic attack (TIA), and cerebral infarction without residual deficits; K74.60 Unspecified cirrhosis of liver
CPT/HCPCS: 87635; 99283; U0003

== ENCOUNTER 2020-12-29 09:15 | Inpatient (IN) | payer SELFPAY ==
[2020-12-29] MEDS ORDERED: Ondansetron PF 4 MG/2 ML Vial ONE (09:33)
[2020-12-29 09:43] LABS: Hemoglobin 10.6 g/dL (14.0-18.0); Mean Corpuscular HGB CONC 33.6 g/dL (32.0-36.0); Mean Corpuscular Volume 89.2 fL (78.0-98.0); Mean Platelet Volume 9.6 fL (7.4-10.4); Platelet Count 182 thou/uL (130-400); RBC Distribution Width 13.6 % (11.5-14.5); Red Blood Cell (RBC) Count 3.53 mill/uL (4.70-6.10); White Blood Cell (WBC) Count 9.1 thou/uL (4.8-10.8)
[2020-12-29 09:58] LABS: ALT (SGPT) 28 U/L (8-55); AST (SGOT) 79 U/L (5-34); Albumin 3.9 g/dL (3.5-5.0); Alkaline Phosphatase 71 U/L (40-110); Anion Gap 14 mmol/L (10-20); BUN (Urea Nitrogen) 5 mg/dL (8.4-25.7); Bilirubin, Total 0.4 mg/dL (0.2-1.2); Calc. Creatinine Clearance 0 mL/min (70-130); Calcium 8.9 mg/dL (7.8-10.44); Carbon Dioxide 21 mmol/L (22-29); Chloride 103 mmol/L (98-107); Glucose 86 mg/dL (70-105); Lipase 42 U/L (8-78); Protein, Total 7.9 g/dL (6.0-8.3); Sodium 134 mmol/L (136-145)
[2020-12-29 10:16] LABS: Band 7 % (5-11); Lymphocytes 17 % (21-51); Monocytes 21 % (0-10); Neutrophil 52 % (42-75); Polychromasia SLIGHT = 2-3 cells (100X) (0-2/hpf); Target Cells SLIGHT = 2-5 cells (100X) (0-1/hpf)
[2020-12-29 10:17] LABS: Platelet Morphology Comment Appears Adequate
[2020-12-29 10:20] LABS: MDiff Complete? YES
[2020-12-29] MEDS ORDERED: Nitroglycerin 0.4 MG TAB (25 Tab Bottle) SL PRN (12:29)
[2020-12-29] MEDS ORDERED: Bisacodyl 5 MG TAB PO PRN (12:33)
[2020-12-29] MEDS ORDERED: Ondansetron PF 4 MG/2 ML Vial IVP PRN (12:33)
[2020-12-29] MEDS ORDERED: Ondansetron ODT 4 MG TAB PO PRN (12:33)
[2020-12-29] MEDS ORDERED: Iopamidol-370 76% 500 ML 1 ML ONE (12:41)
[2020-12-29 12:51] LABS: Troponin I Less than 0.010 ng/mL (< 0.028)
[2020-12-29] MEDS ORDERED: Electrolyte Replacement Protocol 1 EACH FS SCH (13:30)
[2020-12-29] MEDS ORDERED: Multivitamins, Adult 10 ML, Folic Acid 1 MG, Thiamine HCl 100 MG in Dextrose 5 %-0.45 %... IV SCH (13:30)
[2020-12-29 14:14] LABS: ALT (SGPT) 24 U/L (8-55); AST (SGOT) 67 U/L (5-34); Albumin 3.6 g/dL (3.5-5.0); Alkaline Phosphatase 66 U/L (40-110); Anion Gap 13 mmol/L (10-20); BUN (Urea Nitrogen) 4 mg/dL (8.4-25.7); Bilirubin, Total 0.4 mg/dL (0.2-1.2); Calc. Creatinine Clearance 0 mL/min (70-130); Calcium 8.6 mg/dL (7.8-10.44); Carbon Dioxide 23 mmol/L (22-29); Chloride 104 mmol/L (98-107); Glucose 101 mg/dL (70-105); Magnesium 1.7 mg/dL (1.6-2.6); Phosphorus 3.9 mg/dL (2.3-4.7); Potassium 3.9 mmol/L (3.5-5.1); Protein, Total 7.6 g/dL (6.0-8.3); Sodium 136 mmol/L (136-145)
[2020-12-29 14:29] LABS: Syphilis Antibody Nonreactive (Nonreactive); Syphilis Antibody Index 0.08 S/CO (<1.00 Non-Reactive)
[2020-12-29] MEDS ORDERED: Lorazepam 1 MG TAB ONE (14:33)
[2020-12-29] MEDS ORDERED: Oxymetazoline HCl 0.05% (30 ML BOT) ONE (14:33)
[2020-12-29] MEDS: Lorazepam 1 MG TAB PO SCH ×2 (14:48→20:21)
[2020-12-29] MEDS: Oxymetazoline HCl 0.05% (30 ML BOT) NS SCH ×2 (14:49→20:21)
[2020-12-29 15:42] LABS: Troponin I Less than 0.010 ng/mL (< 0.028)
[2020-12-29 16:39] LABS: SARS-CoV-2 NAA Rapid Test Not Detected (NotDetected)
[2020-12-29] MEDS ORDERED: Prevnar 13-Val Conj/PF 0.5 ML SYRINGE IM ONE (17:00)
[2020-12-29 18:20] LABS: Amphetamine Not Detected (NotDetected); Barbiturates Screen Not Detected (NotDetected); Benzodiazepine Screen Not Detected (NotDetected); Cocaine Metabolite Screen Not Detected (NotDetected); Methadone Not Detected (NotDetected); Methamphetamine Not Detected (NotDetected); Opiate Screen Not Detected (NotDetected); Oxycodone Screen Not Detected (NotDetected); Phencyclidine (PCP) Not Detected (NotDetected); THC/Cannabinoid Screen Detected (NotDetected); Tricyclic Screen Not Detected (NotDetected)
[2020-12-29] MEDS: guaiFENesin/Codeine 200 mg/20 mg 10 ml Cup PO PRN (18:33)
[2020-12-29] MEDS: HYDROcodone/Acetaminophen 5/325 mg Tablet PO PRN (20:19)
[2020-12-29] MEDS ORDERED: guaiFENesin 200 MG TAB PO PRN (22:48)
[2020-12-30] MEDS: Lorazepam 1 MG TAB PO SCH ×3 (01:00→13:58)
[2020-12-30] MEDS: guaiFENesin/Codeine 200 mg/20 mg 10 ml Cup PO PRN ×2 (01:01→09:56)
[2020-12-30 04:21] VITALS: TEMP 98.2
[2020-12-30 05:47] LABS: Hemoglobin 9.6 g/dL (14.0-18.0); Mean Corpuscular HGB CONC 32.9 g/dL (32.0-36.0); Mean Corpuscular Hemoglobin 29.7 pg (27.0-31.0); Mean Corpuscular Volume 90.5 fL (78.0-98.0); Mean Platelet Volume 10.2 fL (7.4-10.4); Platelet Count 153 thou/uL (130-400); RBC Distribution Width 13.6 % (11.5-14.5); Red Blood Cell (RBC) Count 3.24 mill/uL (4.70-6.10); White Blood Cell (WBC) Count 6.5 thou/uL (4.8-10.8)
[2020-12-30 05:55] LABS: Anion Gap 9 mmol/L (10-20); BUN (Urea Nitrogen) 5 mg/dL (8.4-25.7); Calc. Creatinine Clearance 0 mL/min (70-130); Calcium 8.9 mg/dL (7.8-10.44); Carbon Dioxide 28 mmol/L (22-29); Cardiac Risk 2.2 (Less than 4.5); Chloride 100 mmol/L (98-107); Cholesterol 174 mg/dl (< 200 Desired); Glucose 92 mg/dL (70-105); HDL Cholesterol 79 mg/dL (>60 Neg Risk); LDL Cholesterol, Calculated 88 mg/dL; Potassium 3.8 mmol/L (3.5-5.1); Sodium 133 mmol/L (136-145); Triglycerides 37 mg/dL (Less than 150)
[2020-12-30] MEDS ORDERED: Magnesium 2 GM/50 ML 2 GM in Premix Bag 1 BAG IVPB SCH (06:15)
[2020-12-30 06:44] LABS: Band 5 % (5-11); Eosinophils 1 % (0-10); Lymphocytes 23 % (21-51); MDiff Complete? YES; Monocytes 16 % (0-10); Neutrophil 54 % (42-75)
[2020-12-30] MEDS: Oxymetazoline HCl 0.05% (30 ML BOT) NS SCH ×2 (08:13→13:59)
[2020-12-30] MEDS ORDERED: Enoxaparin Sodium 40 MG/0.4 ML SYRINGE SC SCH (09:00)
[2020-12-30] MEDS ORDERED: Regadenoson 0.4 MG/5 ML SYRINGE ONE (12:04)
[2020-12-30] MEDS: HYDROcodone/Acetaminophen 5/325 mg Tablet PO PRN (13:58)
[2020-12-30 14:11] VITALS: BP 139/81
[2020-12-31] MEDS ORDERED: Lorazepam 0.5 MG TAB PO SCH (13:30)
[2021-01-01] MEDS ORDERED: Lorazepam 0.5 MG TAB PO PRN (13:23)
== END 2020-12-30 14:56 | disposition home or self-care (01) | DRG 313 ==
LOC: ERS 09:15 → ERHOLD 12:11 → 2SW 15:35
PROVIDERS: ADMIT Hospitalist; ATTEND Hospitalist
DX: R07.89 Other chest pain (principal); I85.10 Secondary esophageal varices without bleeding; K92.2 Gastrointestinal hemorrhage, unspecified; F10.20 Alcohol dependence, uncomplicated; Z20.822 Contact with and (suspected) exposure to COVID-19; F17.210 Nicotine dependence, cigarettes, uncomplicated; K70.30 Alcoholic cirrhosis of liver without ascites; F41.9 Anxiety disorder, unspecified; J44.9 Chronic obstructive pulmonary disease, unspecified; I10 Essential (primary) hypertension; F32.A Depression, unspecified; D50.0 Iron deficiency anemia secondary to blood loss (chronic)
CPT/HCPCS: 36415; 71045; 71275; 74174; 76705; 78452; 80048; 80053; 80061; 80306; 83690; 83735; 84100; 84484; 85025; 85379; 86780; 93005; 93010; 93017; 96374; A9500; J2405; J2785; J3411; J3475; J7042; Q9967; U0002